=== PATIENT | female | born 1950 | race Caucasian/White ===

== ENCOUNTER 2018-03-07 08:05 | Day surgery (SDC) | payer OTHER ==
[2018-03-04 19:25] VITALS: BMI 19.6
[2018-03-07 08:43] LABS: HEMOGLOBIN 12.1 GM/dL (10.7-15.3); MCH 30.2 pg (25.7-33.7); MCHC 33.7 g/dl (32.0-36.0); MEAN CELL VOLUME 89.8 fl (80-96); MEAN PLT VOLUME 8.7 fl (7.5-11.1); PLATELET COUNT 163 K/MM3 (134-434); RDW 14.1 % (11.6-15.6); WHITE BLOOD COUNT 7.2 K/mm3 (4.0-10.0)
[2018-03-07 08:56] LABS: PROTHROMBIN TIME (PATIENT) 11.8 SEC (9.7-13.0)
[2018-03-07 08:58] LABS: ACTIVATED PTT 27.2 SECONDS (25.2-36.5)
[2018-03-07 13:56] VITALS: TEMP 97.4
[2018-03-07 16:00] VITALS: BP 115/68; PULSE 77
--- NOTE | 2018-03-09 09:35 | PATH ---
Surgical Pathology Report Patient Name: JASON BRANTLEY [facility]. Rec. #: [id number] /Age/Gender: 1950 (Age: 67) / F Account: [id number] Location: RADIOLOGY INTER Taken: 03/07/2018 Received: 03/07/2018 Reported: 03/09/2018 Physicians: Shubham Patino M.D. Specimen(s) Received RIGHT LUNG BIOPSY Clinical History 67-year-old female with history of upper esophageal cancer status post radiation therapy 10 years. Now with right lower lobe PET+ nodule. Final Diagnosis RIGHT LUNG, BIOPSY: SCANT LUNG PARENCHYMA WITH CRUSHED INFLAMMATORY INFILTRATE, INSUFFICIENT FOR DEFINITIVE DIAGNOSIS. Electronically Signed Jaylene Ramos M.D. Gross Description Received in formalin labeled "right lung biopsy," are 3 smith-red, cylindrical soft tissue fragments ranging from 0.1-0.5 cm in length and averaging 0.1 cm diameter. The specimens are submitted in toto in one cassette. /03/07/2018 saudi03/07/2018
== END 2018-03-07 16:30 | disposition home or self-care (01) ==
LOC: JRADIR 08:05
PROVIDERS: ATTEND Internal Medicine Hematology & Oncology
PROC: 0BBF3ZX Excision of Right Lower Lung Lobe, Percutaneous Approach, Diagnostic (ICD-10-PCS; principal; 2018-03-07)
DX: D38.1 Neoplasm of uncertain behavior of trachea, bronchus and lung (principal); Z85.01 Personal history of malignant neoplasm of esophagus
CPT/HCPCS: 32405; 36415; 71045-TC-FY; 77012-TC; 85027; 85610; 85730; 88305-TC

== ENCOUNTER 2018-04-20 05:25 | Day surgery (SDC) | payer OTHER ==
[2018-04-20 10:10] VITALS: TEMP 97.8
[2018-04-20 18:05] VITALS: BP 107/72; PULSE 88
--- NOTE | 2018-04-21 15:27 | PATH ---
Surgical Pathology Report Patient Name: JASON BRANTLEY Med. Rec. #: [id number] /Age/Gender: 1950 (Age: 68) / F Account: [id number] Location: RADIOLOGY INTER Taken: 04/20/2018 Received: 04/20/2018 Reported: 04/21/2018 Physicians: Shubham Patino M.D. Specimen(s) Received RIGHT LUNG BIOPSY Clinical History 68-year-old female with history of esophageal cancer now with PET+ lung nodules Final Diagnosis LUNG, CT GUIDED BIOPSY: BENIGN LUNG PARENCHYMA WITH FIBROSIS, HISTIOCYTIC INFILTRATE, AND REACTIVE CHANGES. NO CARCINOMA IDENTIFIED. Comment: Immunohistochemical stains performed and interpreted at [facility] for TTF-1 and p63 utilized to evaluate this case. Deeper levels have been examined. Suggest clinical and radiologic correlation. History of esophageal cancer and PET+ lung nodules noted. Findings discussed with Dr. Miranda. Electronically Signed Jennifer Quintero M.D. Gross Description Received in formalin labeled "lung biopsy," is a 0.4 x 0.3 x 0.1 cm aggregate of smith soft tissue fragments. The formalin is filtered and the specimen is entirely submitted in one cassette. 04/20/201804/20/2018
== END 2018-04-20 16:30 | disposition home or self-care (01) ==
LOC: JRADIR 05:25
PROVIDERS: ATTEND Internal Medicine Hematology & Oncology
PROC: 0BBK3ZX Excision of Right Lung, Percutaneous Approach, Diagnostic (ICD-10-PCS; principal; 2018-04-20)
DX: D14.31 Benign neoplasm of right bronchus and lung (principal); Z85.01 Personal history of malignant neoplasm of esophagus
CPT/HCPCS: 32405; 71045-TC-FY; 76098-TC-FY; 77012-TC; 87899; 88305-TC; 88341-TC; 88342-TC

== ENCOUNTER 2021-05-17 00:18 | Inpatient (IN) | payer OTHER ==
[2021-05-17] MEDS ORDERED: MAGNESIUM SULF 50% (8.12 MEQ/2 ML-1 GM VIAL) IVPB ONE (00:46)
[2021-05-17] MEDS ORDERED: LACTATED RINGERS SOLUTION 1000 ML INFUS.BAG IV ONE (00:46)
[2021-05-17 00:52] LABS: HEMATOCRIT 40.3 % (32.4-45.2); HEMOGLOBIN 12.8 GM/dL (10.7-15.3); MCH 29.9 pg (25.7-33.7); MCHC 31.8 g/dl (32.0-36.0); MEAN CELL VOLUME 93.8 fl (80-96); MEAN PLT VOLUME 9.8 fl (7.5-11.1); PLATELET COUNT 184 10^3/uL (134-434); RDW 16.8 % (11.6-15.6); WHITE BLOOD COUNT 5.7 K/mm3 (4.0-10.0)
[2021-05-17] MEDS ORDERED: AMIODARONE HCL INJECTION 150 MG in DEXTROSE 5%-WATER - 100 ML IVPB ONE (00:53)
[2021-05-17] MEDS ORDERED: SODIUM BICARBONATE 8.4% 50 MEQ/50 ML VIAL ONE (00:55)
[2021-05-17] MEDS ORDERED: EPINEPHrine 1:10,000 (P-F SYR) 1 MG/10 ML DISP.SYRIN ONE (00:55)
[2021-05-17] MEDS ORDERED: CALCIUM CHLORIDE 1 GM/10 ML *DISP.SYRIN ONE (00:55)
[2021-05-17] MEDS ORDERED: AMIODARONE IN DEXTROSE,ISO-OSM 150 MG/100 ML BAG ONE (00:56)
[2021-05-17 01:00] LABS: PROTHROMBIN TIME (PATIENT) 68.6 SEC (9.7-13.0)
[2021-05-17 01:02] LABS: ACTIVATED PTT 47.5 SECONDS (25.2-36.5)
[2021-05-17 01:20] LABS: ALBUMIN 2.6 g/dl (3.4-5.0); BLOOD UREA NITROGEN 33.3 mg/dL (7-18); CALCIUM 9.8 mg/dL (8.5-10.1)
[2021-05-17 01:24] LABS: CREATININE 2.1 mg/dL (0.55-1.3)
[2021-05-17 01:25] LABS: BILIRUBIN,TOTAL 1.5 mg/dL (0.2-1); TOT PROT 5.1 g/dl (6.4-8.2)
[2021-05-17] MEDS ORDERED: DEXTROSE 50%-WATER - 25 GM/50 ML VIAL IVPUSH ONE ×2 (01:26)
[2021-05-17] MEDS ORDERED: FOLIC ACID INJECTION - 1 MG, THIAMINE HCL 100 MG, MULTIVIT INJECTION ADULT 10 ML in SOD... IVPB ONE (01:29)
[2021-05-17 01:43] LABS: LACTIC ACID 17.1 mmol/L (0.4-2.0)
[2021-05-17 01:46] LABS: VENOUS BASE EXCESS -20.9 mmol/L (-2-2); VENOUS O2 SATURATION 39.9 % (70-80)
[2021-05-17 01:54] LABS: VENOUS PCO2 74.5 mmHg (38-52); VENOUS PH 6.871 (7.310-7.410)
[2021-05-17] MEDS ORDERED: MIDAZOLAM IN 0.9 % SOD.CHLORID 100 MG/100 ML PLAST..BAG IVPB SCH (02:00)
[2021-05-17] MEDS ORDERED: PIPERACILLIN/TAZOB 4.5 GM 4.5 GM in DEXTROSE 5%-WATER 100 ML IVPB ONE (02:11)
[2021-05-17] MEDS ORDERED: VANCOMYCIN 1,000 MG in DEXTROSE 5%-WATER - 250 ML IVPB ONE (02:11)
[2021-05-17 02:44] LABS: INR 5.86 (0.83-1.09)
[2021-05-17 02:50] LABS: ARTERIAL BLOOD GAS BASE EXCESS -20.9 mmol/L (-2-2); ARTERIAL BLOOD GAS PO2 211.6 mmHg (80-100)
[2021-05-17 02:54] LABS: ALLENS TEST POSITIVE
[2021-05-17 02:55] LABS: ARTERIAL BLOOD GAS pH 7.055 (7.350-7.450); VENT MODE A/C; VENT RATE 18
[2021-05-17] MEDS ORDERED: VANCOMYCIN 1 GRAM (PRE-DOCKED) 1,000 MG/250 ML BAG IVPB ONE (02:56)
[2021-05-17] MEDS ORDERED: DIGOXIN 0.5 MG/2 ML AMPUL IVPUSH ONE (03:27)
[2021-05-17] MEDS ORDERED: DIGOXIN 0.5 MG/2 ML AMPUL ONE (03:46)
[2021-05-17] MEDS ORDERED: DEXAMETHASONE SOD PHOSPHATE 10 MG/1 ML VIAL IVPUSH ONE (04:29)
[2021-05-17] MEDS ORDERED: DEXAMETHASONE SOD PHOSPHATE 10 MG/1 ML VIAL ONE ×2 (04:30→08:44)
[2021-05-17] MEDS ORDERED: PIPERACILLIN/TAZOB 4.5 GM 4.5 GM/100 ML BAG IVPB ONE (04:42)
[2021-05-17] MEDS ORDERED: NOREPINEPHRINE BITARTRATE 16,000 MCG in SODIUM CHLORIDE 484 ML IV SCH (04:45)
[2021-05-17] MEDS ORDERED: FENTANYL NS IVPB 500 MCG/100 ML BAG IVPB SCH (05:00)
[2021-05-17] MEDS ORDERED: SODIUM BICARBONATE 8.4% 50 MEQ/50 ML VIAL IVPB ONE (05:01)
[2021-05-17 05:25] LABS: EPI CELLS 11 /uL (0-25.1); HYALINE CASTS 13 /uL (0-3.1); URINE APPEARANCE CLOUDY; URINE BACTERIA >9,000 /uL (0-1359); URINE BILIRUBIN NEGATIVE (NEGATIVE); URINE COLOR DK YELLOW; URINE GLUCOSE (UA) NEGATIVE (NEGATIVE); URINE KETONE NEGATIVE (NEGATIVE); URINE LEUK ESTERASE 1+ (NEGATIVE); URINE NITRITE NEGATIVE (NEGATIVE); URINE PROTEIN 3+ (NEGATIVE); URINE RBC 1084 /uL (0-23.9); URINE WBC 569 /uL (0-25.8)
[2021-05-17] MEDS ORDERED: SODIUM BICARBONATE 8.4% - 50 ML ONE (05:30)
[2021-05-17] MEDS ORDERED: CEFTRIAXONE 500 MG in DEXTROSE 5%-WATER - 50 ML IVPB ONE (05:43)
[2021-05-17 06:05] VITALS: BP 131/71; PULSE 145; TEMP 94.8
[2021-05-17] MEDS ORDERED: PHYTONADIONE 5 MG TABLET PO ONE (06:09)
[2021-05-17 06:15] LABS: LACTIC ACID 15.1 mmol/L (0.4-2.0)
[2021-05-17] MEDS ORDERED: FENTANYL NS IVPB 500 MCG/100 ML BAG IVPB ONE (06:38)
[2021-05-17 07:47] LABS: ANISOCYTOSIS 1+; MACROCYTOSIS 1+; OVALOCYTE 1+; PLATELET ESTIMATE NORMAL
[2021-05-17] MEDS ORDERED: METOPROLOL TARTRATE 5 MG/5 ML VIAL IVPUSH ONE (08:40)
[2021-05-17] MEDS ORDERED: dilTIAZem HCL 50 MG/10 ML - 10 ML VIAL IVPUSH ONE (08:43)
[2021-05-17] MEDS ORDERED: PANTOPRAZOLE SODIUM 40 MG/100 ML BAG IVPB ONE (08:44)
[2021-05-17] MEDS ORDERED: cefTRIAXone SODIUM 1 GM VIAL ONE (08:45)
[2021-05-17] MEDS ORDERED: dilTIAZem HCL 125 MG/25 ML - 25 ML VIAL ONE (08:46)
[2021-05-17] MEDS ORDERED: AMIODARONE IN DEXTROSE,ISO-OSM 360 MG/200 ML BAG IVPB ONE (08:59)
[2021-05-17] MEDS ORDERED: AMIODARONE IN DEXTROSE,ISO-OSM 150 MG/100 ML BAG IVPB ONE (08:59)
[2021-05-17] MEDS ORDERED: DEXAMETHASONE SOD PHOSPHATE 10 MG/1 ML VIAL IVPUSH SCH (10:00)
[2021-05-17] MEDS ORDERED: PANTOPRAZOLE SODIUM 40 MG VIAL IVPUSH SCH (10:00)
[2021-05-17] MEDS ORDERED: MUPIROCIN 2% TOPICAL OINTMENT FOR DECOLONIZATION NS SCH (10:00)
[2021-05-17 10:50] LABS: HEMATOCRIT 41.5 % (32.4-45.2); HEMOGLOBIN 12.7 GM/dL (10.7-15.3); MCHC 30.5 g/dl (32.0-36.0); MEAN CELL VOLUME 95.2 fl (80-96); MEAN PLT VOLUME 10.4 fl (7.5-11.1); PLATELET COUNT 205 10^3/uL (134-434); RBC 4.36 M/mm3 (3.60-5.2); RDW 17.5 % (11.6-15.6); WHITE BLOOD COUNT 4.2 K/mm3 (4.0-10.0)
[2021-05-17 11:18] LABS: CHLORIDE 102 mmol/L (98-107); SODIUM 139 mmol/L (136-145)
[2021-05-17 11:21] LABS: ALBUMIN 2.4 g/dl (3.4-5.0); ANION GAP 25 MMOL/L (8-16); BLOOD UREA NITROGEN 39.3 mg/dL (7-18); CO2 12 mmol/L (21-32); GLUCOSE,RANDOM 185 mg/dL (74-106); MAGNESIUM 2.7 mg/dL (1.8-2.4)
[2021-05-17 11:24] LABS: CREATININE 2.4 mg/dL (0.55-1.3); PHOSPHOROUS 7.7 mg/dL (2.5-4.9)
[2021-05-17 11:26] LABS: BILIRUBIN,TOTAL 2.5 mg/dL (0.2-1); TOT PROT 4.9 g/dl (6.4-8.2)
[2021-05-17 11:27] LABS: ALK PHOS 71 U/L (45-117)
[2021-05-17 11:52] LABS: CALCIUM 8.3 mg/dL (8.5-10.1); SGOT/AST 11748 U/L (15-37); SGPT/ALT 3043 U/L (13-61)
[2021-05-17 12:41] LABS: ANISOCYTOSIS 0; HELMET CELLS 0; HOWELL-JOLLY BODIES 0; MACROCYTOSIS 0; OVALOCYTE 0; PLATELET ESTIMATE NORMAL; ROULEAU 0; SICKELED CELLS 0; TARGET CELLS 0; TEAR DROP CELLS 0; TOXIC GRANULATION 0
[2021-05-17] MEDS ORDERED: PIPERACILLIN/TAZOB 4.5 GM 4.5 GM in DEXTROSE 5%-WATER 100 ML IVPB SCH (18:00)
[2021-05-17] MEDS ORDERED: ATORVASTATIN CA 40 MG TABLET (FP) PO SCH (22:00)
[2021-05-17] MEDS ORDERED: CHLORHEXIDINE GLUCONATE 4% CLEANSER FOR DECOLONIZATION TP SCH (22:00)
== END 2021-05-17 10:30 | disposition expired | DRG 208 ==
LOC: JER 00:18 → JERBED 01:59
PROVIDERS: ADMIT Internal Medicine Pulmonary Disease; ATTEND Internal Medicine Pulmonary Disease
PROC: 5A1935Z Respiratory Ventilation, Less than 24 Consecutive Hours (ICD-10-PCS; principal; 2021-05-17)
PROC: 0BH17EZ Insertion of Endotracheal Airway into Trachea, Via Natural or Artificial Opening (ICD-10-PCS; 2021-05-17)
PROC: 5A12012 Performance of Cardiac Output, Single, Manual (ICD-10-PCS; 2021-05-17)
PROC: 02HV33Z Insertion of Infusion Device into Superior Vena Cava, Percutaneous Approach (ICD-10-PCS; 2021-05-17)
PROC: B548ZZA Ultrasonography of Superior Vena Cava, Guidance (ICD-10-PCS; 2021-05-17)
DX: U07.1 COVID-19 (principal); J96.02 Acute respiratory failure with hypercapnia; J12.82 Pneumonia due to coronavirus disease 2019; N39.0 Urinary tract infection, site not specified; I47.2 Ventricular tachycardia; N17.9 Acute kidney failure, unspecified; E87.2 Acidosis; I46.9 Cardiac arrest, cause unspecified; I25.10 Atherosclerotic heart disease of native coronary artery without angina pectoris; I11.0 Hypertensive heart disease with heart failure; I50.9 Heart failure, unspecified; I95.9 Hypotension, unspecified
CPT/HCPCS: 36415; 36600; 71045-TC-FY; 80053; 81003; 82550; 82553; 82803; 82962; 83605; 83735; 84100; 84484; 85025; 85610; 85730; 87040; 87086; 87186; 87804; 93005; 93010; 99285-25; C9803-CS; J1100; U0003; U0005